=== PATIENT | male | born 1960 | race Caucasian/White ===

== ENCOUNTER 2019-04-03 09:07 | Emergency (ER) | payer OTHER ==
[2019-04-03] MEDS ORDERED: NA CHLORIDE 0.9% 1,000 ML ONE (10:19)
--- NOTE | 2019-04-03 10:33 | RAD REPORT ---
EXAM DESCRIPTION: CT - Int Auditory Canals Wo Con - 04/03/2019 9:53 am CLINICAL HISTORY: Right ear ringing or . TECHNIQUE: Computed axial tomography of the internal auditory canal obtained. Coronal reconstruction performed All CT scans are performed using dose optimization technique as appropriate and may include automated exposure control or mA/KV adjustment according to patient size. COMPARISON: none FINDINGS: Soft tissue is present within the right external auditory canal which abuts the tympanic m embrane. It measures 20 millimeter Soft tissues also seen within the left external auditory canal measuring 5 millimeters. The ossicles are intact. Middle ear is clear. The cochlea appears unremarkable. The left maxillary sinus is almost completely opacified. Left ostiomeatal complex is expanded with so ft tissue extending into the left nasal cavity. IMPRESSION: 20 millimeter soft tissue structure within the right external auditory canal abuts the t ympanic membrane. It may represent a cholesterol granuloma, other mass or chronic inflammation 5 millimeter additional soft tissue structure within the left external auditory canal Left maxillary sinus is almost completely opacified with expansion of the left ostiomeatal complex wi th soft tissue extending into the left nasal cavity. This may represent a polyp, papilloma or chronic inflammation
--- NOTE | 2019-04-03 12:27 | EDPHYS ---
Physician Documentation [facility] Name: Jignesh Amador Age: 58 yrs Sex: Male : 1960 Arrival Date: 04/03/2019 Time: 09:13 Bed 14 Private MD: ED Physician Ad Wilkinson HPI: 04/03 09:39 This 58 yrs old Male presents to ER via Ambulatory with complaints of Ear kdr Pain. 09:39 This 58 yrs old Male presents to ER via Ambulatory with complaints of Unable kdr to hear out of right ear since [place]. 09:39 The patient presents with hearing loss, partial. The complaints affect the right ear. kdr Onset: The symptoms/episode began/occurred suddenly, 2 week(s) ago. Historical: - Allergies: 09:24 No Known Allergies; jl7 - Home Meds: :24 None [Active]; jl7 - PMHx: 09:24 GALLSTONES; jl7 - PSHx: 09:24 None; jl7 - Immunization history:: Adult Immunizations not up to date. - Social history:: Smoking status: Patient uses tobacco products, smokes one-half pack cigarettes per day. - Ebola Screening: : No symptoms or risks identified at this time. ROS: 10:27 Constitutional: Negative for fever, chills, and weight loss, Eyes: Negative for injury, kdr pain, redness, and discharge, Neck: Negative for injury, pain, and swelling, Cardiovascular: Negative for chest pain, palpitations, and edema, Respiratory: Negative for shortness of breath, cough, wheezing, and pleuritic chest pain, Abdomen/GI: Negative for abdominal pain, nausea, vomiting, diarrhea, and constipation, Back: Negative for injury and pain, : Negative for injury, bleeding, discharge, and swelling, MS/Extremity: Negative for injury and deformity. 10:27 ENT: Positive for hearing loss, Negative for drainage from ear(s), ear pain, pulling at ears, sinus congestion, sinus pain, sore throat, difficulty swallowing. Exam: 10:27 Constitutional: This is a well developed, well nourished patient who is awake, alert, kdr and in no acute distress. Head/Face: Normocephalic, atraumatic. Eyes: Pupils equal round and reactive to light, extra-ocular motions intact. Lids and lashes normal. Conjunctiva and sclera are non-icteric and not injected. Cornea within normal limits. Periorbital areas with no swelling, redness, or edema. Neck: Trachea midline, no thyromegaly or masses palpated, and no cervical lymphadenopathy. Supple, full range of motion without nuchal rigidity, or vertebral point tenderness. No Meningismus. Chest/axilla: Normal chest wall appearance and motion. Nontender with no deformity. No lesions are appreciated. Cardiovascular: Regular rate and rhythm with a normal S1 and S2. No gallops, murmurs, or rubs. Normal PMI, no JVD. No pulse deficits. 10:27 ENT: TM's: The left TM is obscured by cerumen. There is no drainage or pain in the left ear. The right ear is also impacted with cerumen and additionally, the canal is mildly swollen with some exudative process.. Vital Signs: 09:24 BP 150 / 94; Pulse 76; Resp 16 S; Temp 97.3(O); Pulse Ox 100% on R/A; Weight 86.18 kg 7 (R); Height 6 ft. 0 in. (182.88 cm) (R); Pain 0/10; 12:40 BP 137 / 87; Pulse 76; Resp 17 S; Pulse Ox 100% on R/A; ca1 09:24 Body Mass Index 25.77 (86.18 kg, 182.88 cm) jl7 MDM: 12:26 Patient medically screened. kdr 12:27 Data reviewed: vital signs, nurses notes, lab test result(s), radiologic studies. kdr Counseling: I had a detailed discussion with the patient and/or guardian regarding: the historical points, exam findings, and any diagnostic results supporting the discharge/admit diagnosis, lab results, radiology results, the need for outpatient follow up. 04/03 09:38 Order name: Int Auditory Canals Wo Con; Complete Time: 10:52 EDMS Administered Medications: No medications were administered Disposition: 04/03/19 12:26 Discharged to Home. Impression: Impacted cerumen, bilateral. - Condition is Stable. - Discharge Instructions: Earwax Buildup, Adult. - Medication Reconciliation Form, Thank You Letter form. - Follow up: Private Physician; When: 2 - 3 days; Reason: If symptoms return, Further diagnostic work-up, Recheck today's complaints, Continuance of care, Re-evaluation by your physician. Follow up: Guillermina Reyna MD; When: Upon discharge from the Emergency Department. - Problem is an ongoing problem. - Symptoms are unchanged. - Notes: Call for an appointment as soon as possible. Signatures: Dispatcher [employer] EDMS Ad Wilkinson MD MD kdr Haroon Martínez RN RN jl7 Samira Ramos RN RN ca1 Corrections: (The following items were deleted from the chart) 12:27 12:26 04/03/2019 12:26 Discharged to Home. Impression: Impacted cerumen, bilateral. kdr Condition is Stable. Forms are Medication Reconciliation Form, Thank You Letter, Antibiotic Education, Prescription Opioid Use. Follow up: Private Physician; When: 2 - 3 days; Reason: If symptoms return, Further diagnostic work-up, Recheck today's complaints, Continuance of care, Re-evaluation by your physician. Problem is an ongoing problem. Symptoms are unchanged. kdr 12:41 12:27 04/03/2019 12:26 Discharged to Home. Impression: Impacted cerumen, bilateral. ca1 Condition is Stable. Discharge Instructions: Earwax Buildup, Adult. Forms are Medication Reconciliation Form, Thank You Letter. Follow up: Private Physician; When: 2 - 3 days; Reason: If symptoms return, Further diagnostic work-up, Recheck today's complaints, Continuance of care, Re-evaluation by your physician. Follow up: Guillermina Reyna; When: Upon discharge from the Emergency Department. Problem is an ongoing problem. Symptoms are unchanged. kdr
--- NOTE | 2019-04-03 12:27 | ER ---
Nurse's Notes [facility] Name: Jignesh Amador Age: 58 yrs Sex: Male : 1960 Arrival Date: 04/03/2019 Time: 09:13 Bed 14 Private MD: Diagnosis: Impacted cerumen, bilateral Presentation: 04/03 09:21 Presenting complaint: Patient states: Ringing in right ear since , tried jl7 decongestants and it is still ringing. Denies pain, denies trauma, no recent medication use. Transition of care: patient was not received from another setting of care. Onset of symptoms was March 20, 2019. Risk Assessment: Do you want to hurt yourself or someone else? Patient reports no desire to harm self or others. Initial Sepsis Screen: Does the patient meet any 2 criteria? No. Patient's initial sepsis screen is negative. Does the patient have a suspected source of infection? No. Patient's initial sepsis screen is negative. Care prior to arrival: None. 09:21 Method Of Arrival: Ambulatory 7 09:21 Acuity: DOMINGA 4 jl7 Triage Assessment: 09:24 General: Appears in no apparent distress. uncomfortable, Behavior is calm, cooperative, jl7 appropriate for age. Pain: Denies pain. EENT: Tympanic membrane not visualized right ear. Neuro: Level of Consciousness is awake, alert, obeys commands, Oriented to person, place, time, situation. Cardiovascular: Patient's skin is warm and dry. Respiratory: Airway is patent Respiratory effort is even, unlabored, Respiratory pattern is regular, symmetrical. Derm: Skin is pink, warm \T\ dry. Historical: - Allergies: 09:24 No Known Allergies; jl7 - Home Meds: 09:24 None [Active]; jl7 - PMHx: 09:24 GALLSTONES; jl7 - PSHx: 09:24 None; jl7 - Immunization history:: Adult Immunizations not up to date. - Social history:: Smoking status: Patient uses tobacco products, smokes one-half pack cigarettes per day. - Ebola Screening: : No symptoms or risks identified at this time. Screenin:26 Abuse screen: Denies threats or abuse. Denies injuries from another. Nutritional jl7 screening: No deficits noted. Tuberculosis screening: No symptoms or risk factors identified. Fall Risk None identified. Assessment: 09:27 General: See triage assessment. jl7 10:30 Reassessment: Patient appears in no apparent distress at this time. No changes from [facility] previously documented assessment. Patient and/or family updated on plan of care and expected duration. Pain level reassessed. Patient is alert, oriented x 3, equal unlabored respirations, skin warm/dry/pink. 11:30 Reassessment: Patient appears in no apparent distress at this time. No changes from [facility] previously documented assessment. Patient and/or family updated on plan of care and expected duration. Pain level reassessed. Patient is alert, oriented x 3, equal unlabored respirations, skin warm/dry/pink. 12:40 Reassessment: Patient appears in no apparent distress at this time. Patient is alert, ca1 oriented x 3, equal unlabored respirations, skin warm/dry/pink. Vital Signs: 09:24 BP 150 / 94; Pulse 76; Resp 16 S; Temp 97.3(O); Pulse Ox 100% on R/A; Weight 86.18 kg [facility] (R); Height 6 ft. 0 in. (182.88 cm) (R); Pain 0/10; 12:40 BP 137 / 87; Pulse 76; Resp 17 S; Pulse Ox 100% on R/A; ca1 09:24 Body Mass Index 25.77 (86.18 kg, 182.88 cm) [facility] ED Course: 09:13 Patient arrived in ED. mr 09:14 Haroon Martínez, RN is Primary Nurse. jl7 09:19 Ad Wilkinson MD is Attending Physician. kdr 09:23 Triage completed. jl7 09:24 Arm band placed on right wrist. jl7 09:26 Patient has correct armband on for positive identification. Bed in low position. Call [facility] light in reach. Side rails up X 1. Pulse ox on. NIBP on. 09:53 Int Auditory Canals Wo Con In Process Unspecified. EDMS 12:27 Guillermina Reyna MD is Referral Physician. kdr 12:40 No provider procedures requiring assistance completed. Patient did not have IV access ca1 during this emergency room visit. Administered Medications: No medications were administered Outcome: 12:26 Discharge ordered by . kdr 12:40 Discharged to home ambulatory. ca1 12:40 Condition: stable 12:40 Discharge instructions given to patient, Instructed on discharge instructions, follow up and referral plans. Demonstrated understanding of instructions, follow-up care. 12:41 Patient left the ED. ca1 Signatures: Dispatcher [employer] EDMS Ad Wilkinson MD MD kdr Rivera, Mary mr MartínezHaroon RN RN jl7 Samira Ramos RN RN ca1
[2019-04-03 12:56] VITALS: TEMP 97.3; O2SAT 100
[2019-04-03 12:57] VITALS: BP 137/87
== END 2019-04-03 12:41 | disposition home or self-care (01) ==
LOC: ER 09:07
DX: H61.23 Impacted cerumen, bilateral (principal); F17.210 Nicotine dependence, cigarettes, uncomplicated
CPT/HCPCS: 70480; 99283; J7030

== ENCOUNTER 2020-07-09 07:34 | Emergency (ER) | payer OTHER ==
--- NOTE | 2020-07-09 08:39 | RAD REPORT ---
EXAM DESCRIPTION: RAD - Hand Right 3 View - 07/09/2020 8:29 am CLINICAL HISTORY: Pain;Swelling COMPARISON: None FINDINGS: Soft tissue swelling is seen along the dorsum of the hand. No acute fracture or dislocatio n is evident.
--- NOTE | 2020-07-09 09:45 | ER ---
Nurse's Notes [facility] Name: Jignesh Amador Age: 59 yrs Sex: Male : 1960 Arrival Date: 07/09/2020 Time: 07:43 Bed 17 Private MD: Diagnosis: Sprain of other part of left wrist and hand Presentation: 07/09 07:55 Chief complaint: Patient states: Bruising and swelling to R hand x 2 days after ss catching self from a fall. Pt reports his pain is 1/10. Coronavirus screen: Client denies travel out of the [place] in the last 14 days. Ebola Screen: Patient denies exposure to infectious person. Patient denies travel to an Ebola-affected area in the 21 days before illness onset. Initial Sepsis Screen: Does the patient meet any 2 criteria? No. Patient's initial sepsis screen is negative. Does the patient have a suspected source of infection? No. Patient's initial sepsis screen is negative. Risk Assessment: Do you want to hurt yourself or someone else? Patient reports no desire to harm self or others. Onset of symptoms was July 07, 2020. 07:55 Method Of Arrival: Ambulatory ss 07:55 Acuity: DOMINGA 4 ss Triage Assessment: 09:55 General: Appears in no apparent distress. Behavior is calm, cooperative, appropriate bw for age. Injury Description: fall. Historical: - Allergies: 07:59 No Known Allergies; ss - Home Meds: 07:59 None [Active]; ss - PMHx: 07:59 GALLSTONES; ss - PSHx: 07:59 None; ss - Immunization history:: Adult Immunizations unknown. - Social history:: Smoking status: Patient reports the use of cigarette tobacco products, smokes one-half pack cigarettes per day. Screenin:54 Abuse screen: Denies threats or abuse. Nutritional screening: No deficits noted. bw Tuberculosis screening: No symptoms or risk factors identified. Fall Risk None identified. Assessment: 08:58 Pain: Complains of pain in right hand. Neuro: No deficits noted. Cardiovascular: No bw deficits noted. Respiratory: No deficits noted. GI: No signs and/or symptoms were reported involving the gastrointestinal system. : No signs and/or symptoms were reported regarding the genitourinary system. EENT: No signs and/or symptoms were reported regarding the EENT system. Musculoskeletal: Reports pain in right hand. Vital Signs: 07:55 BP 135 / 95; Pulse 105; Resp 18; Temp 98.3(O); Pulse Ox 100% on R/A; Pain 1/10; ss 08:58 BP 156 / 94; Pulse 79; Resp 18; Pulse Ox 99% on R/A; bw ED Course: 07:43 Patient arrived in ED. mr 07:54 Ad Wilkinson MD is Attending Physician. kdr 07:59 Triage completed. ss 07:59 Arm band placed on right wrist. ss 08:13 X-ray completed. Portable x-ray completed in exam room. md1 08:29 Hand Right 3 View XRAY In Process Unspecified. EDMS 08:58 Kiersten Brown, ALYSON is Primary Nurse. bw 09:54 Patient has correct armband on for positive identification. Call light in reach. Side bw rails up X 1. 09:54 No provider procedures requiring assistance completed. Patient did not have IV access bw during this emergency room visit. Administered Medications: No medications were administered Outcome: 09:45 Discharge ordered by . kdr 09:54 Discharged to home ambulatory. bw 09:54 Condition: stable 09:54 Discharge instructions given to patient, family. 09:55 Patient left the ED. bw Signatures: Dispatcher [employer] EDMS Ad Wilkinson MD MD kdr Rivera, Mary mr AlbaGeena RN RN Adenike Benedict md1 Kiersten Brown RN RN
--- NOTE | 2020-07-09 09:46 | EDPHYS ---
Physician Documentation [facility] Name: Jignesh Amador Age: 59 yrs Sex: Male : 1960 Arrival Date: 07/09/2020 Time: 07:43 Bed 17 Private MD: ED Physician Ad Wilkinson Historical: - Allergies: 07/09 07:59 No Known Allergies; ss - Home Meds: 07:59 None [Active]; ss - PMHx: 07:59 GALLSTONES; ss - PSHx: 07:59 None; ss - Immunization history:: Adult Immunizations unknown. - Social history:: Smoking status: Patient reports the use of cigarette tobacco products, smokes one-half pack cigarettes per day. Vital Signs: 07:55 BP 135 / 95; Pulse 105; Resp 18; Temp 98.3(O); Pulse Ox 100% on R/A; Pain 1/10; ss 08:58 BP 156 / 94; Pulse 79; Resp 18; Pulse Ox 99% on R/A; bw MDM: 09:45 Patient medically screened. kdr 07/09 08:03 Order name: Hand Right 3 View XRAY; Complete Time: 08:40 kdr 07/09 09:22 Order name: Gianfranco Wrap; Complete Time: 09:25 ss Administered Medications: No medications were administered Disposition: 07/09/20 09:45 Discharged to Home. Impression: Sprain of other part of left wrist and hand. - Condition is Stable. - Discharge Instructions: Wrist Sprain. - Medication Reconciliation Form, Thank You Letter form. - Follow up: Private Physician; When: 2 - 3 days; Reason: If symptoms return, Further diagnostic work-up, Recheck today's complaints, Continuance of care, Re-evaluation by your physician. - Problem is new. - Symptoms have improved. Addendum: 07/27/2020 08:40 Addendum: CC: Right hand pain and swelling. Addendum: HPI: The patient states that two k dr days ago his tripped and fell attempting to catch himself with his right hand. Since then, he has had minor pain and swelling to the dorsum of the right hand. He has no other c/o or injuries at this time. ROS: 10 point ROS all negative except as noted with regard to the pain and swelling to the dorsum of the right hand. EXAM: WDWN WM NAD, Dorsum of right hand moderately swollen with mild ecchymosis. No deformity and n/v intact distal to the swelling. No other obvious acute injury or deficit. The remaining exam was all negative. MDM: The patient was stable with no need for acute intervention found. The patient was happy with the care provided and the plan for discharge and follow-up. Signatures: Dispatcher [employer] EDAd Owens MD MD kdr Smirch, Shelby, RN RN Kiersten Brown RN RN Corrections: (The following items were deleted from the chart) 07/09 09:55 09:45 07/09/2020 09:45 Discharged to Home. Impression: Sprain of other part of left bw wrist and hand. Condition is Stable. Forms are Medication Reconciliation Form, Thank You Letter, Antibiotic Education, Prescription Opioid Use. Follow up: Private Physician; When: 2 - 3 days; Reason: If symptoms return, Further diagnostic work-up, Recheck today's complaints, Continuance of care, Re-evaluation by your physician. Problem is new. Symptoms have improved. kdr
[2020-07-09 10:00] VITALS: TEMP 98.3
[2020-07-09 10:02] VITALS: BP 156/94; O2SAT 99
== END 2020-07-09 09:55 | disposition home or self-care (01) ==
LOC: ER 07:34
DX: S63.8X2A Sprain of other part of left wrist and hand, initial encounter (principal); W19.XXXA Unspecified fall, initial encounter; Y93.89 Activity, other specified; Y92.9 Unspecified place or not applicable; F17.210 Nicotine dependence, cigarettes, uncomplicated
CPT/HCPCS: 99283